=== PATIENT | female | born 1935 | race Caucasian/White ===

== ENCOUNTER 2019-10-23 14:53 | Emergency (ER) | payer MEDICARE, SELFPAY ==
[2019-10-23 15:30] VITALS: BP 150/72; PULSE 80; RESP 16; TEMP 37.2; O2SAT 96; BMI 30.8
--- NOTE | 2019-10-23 15:43 | CTR_ITS ---
PROCEDURE INFORMATION: Exam: CT Head Without Contrast Exam date and time: 10/23/2019 4:16 PM Age: 84 years old Clinical indication: Injury or trauma; Initial encounter; Laceration; Without loss of consciousness; Without residual foreign body; Patient HX: Fall while stepping of curb, lac to forehead w swelling and bruising; Additional info: Fall with head injury TECHNIQUE: Imaging protocol: Computed tomography of the head without contrast. Radiation optimization: All CT scans at this facility use at least one of these dose optimization techniques: automated exposure control; mA and/or kV adjustment per patient size (includes targeted exams where dose is matched to clinical indication); or iterative reconstruction. COMPARISON: No relevant prior studies available. RADIATION DOSE METRICS: Total DLP (mGy-cm): 750.76 FINDINGS: Brain: Mild diffuse cortical volume loss. Mild hypodensities in supratentorial periventricular and subcortical white matter. No intracranial hemorrhage. Ventricles: Normal. No ventriculomegaly. Bones/joints: Unremarkable. No acute fracture. Sinuses: Visualized sinuses are unremarkable. No fluid levels. Mastoid air cells: Visualized mastoid air cells are well aerated. Orbits: Prior cataract surgery. Soft tissues: Left frontal scalp laceration and contusion. CT/CT head wo con* [id number] IMPRESSION: 1. No fracture or intracranial hemorrhage. 2. Left frontal scalp injury. 3. Mild microangiopathy. Radiation Dose CTDIVOL = (mGy): DLP = 750.76 (mGy-cm)
--- NOTE | 2019-10-23 15:43 | CTR_ITS ---
PROCEDURE INFORMATION: Exam: CT Cervical Spine Without Contrast Exam date and time: 10/23/2019 4:16 PM Age: 84 years old Clinical indication: Injury or trauma; Initial encounter; Blunt trauma; Patient HX: Fall while stepping of curb, lac to forehead w swelling and bruising and neck pain; Additional info: Fall with head trauma and neck pain TECHNIQUE: Imaging protocol: Computed tomography images of the cervical spine without contrast. Radiation optimization: All CT scans at this facility use at least one of these dose optimization techniques: automated exposure control; mA and/or kV adjustment per patient size (includes targeted exams where dose is matched to clinical indication); or iterative reconstruction. COMPARISON: No relevant prior studies available. RADIATION DOSE METRICS: Total DLP (mGy-cm): 491.4 FINDINGS: Vertebrae: The vertebral body stature is maintained. The facets are intact with hypertrophic degenerative changes. C2-C3: No significant disc protrusion. No severe spinal canal stenosis. No significant neural foraminal narrowing. C3-C4: Disc space narrowing. Severe bilateral bony foraminal stenosis. C4-C5: Disc space narrowing with posterior endplate spurring. Severe bilateral bony foraminal stenosis. Moderate central canal stenosis. C5-C6: Disc space narrowing with endplate spurring. Severe bilateral bony foraminal stenosis. Mild central canal stenosis. C6-C7: Disc space narrowing with degenerative endplate changes. Severe bilateral bony foraminal stenosis. Moderate central canal stenosis. C7-T1: No significant disc protrusion. No severe spinal canal stenosis. No significant neural foraminal narrowing. Soft tissues: Unremarkable. Vasculature: Bilateral carotid bulb calcifications. Lungs: Lung apices are normal. CT/CT cervical spin wo con* [id number] IMPRESSION: 1. No fracture or acute finding. 2. Multilevel degenerative changes. Radiation Dose CTDIVOL = (mGy): DLP = 491.4 (mGy-cm)
--- NOTE | 2019-10-23 15:57 | ED_ITS ---
HPI - Wound/Laceration General: Chief Complaint: Wound/Laceration Stated Complaint: fall/head lac Time Seen by Provider: 10/23/19 15:44 History of Present Illness: HPI narrative: Patient is an 84-year-old female comes to the ED with laceration on forehead after having a fall. Patient is not currently on any blood thinners. Injury occurred just prior to arrival. Patient was walking in the parking lot at [facility] and stepped off the curb and fell face forward. Patient says her nose and forehead hit pavement. The loss of consciousness. She reports having a mild headache, neck pain and some soreness on the face but no other complaints. Denies any vision changes, numbness or tingling or weakness to face or extremities. Pt says she did not have any nosebleed after injury. Patient says she is unsure of last tetanus shot. Associated symptoms: Denies chills, fever(s), nausea or vomiting Review of Systems Const: Denies: fever(s), chills or fatigue Eyes: Denies: change in vision or eye discomfort ENMT: Denies: throat pain, odynophagia, nasal discharge or nasal congestion Card: Denies: chest pain, palpitations, edema, swelling of feet/ankles, dyspnea on exertion or orthopnea Resp: Denies: dyspnea, productive cough or non-productive cough GI: Denies: abdominal pain, nausea, vomiting, diarrhea, constipation or hematochezia : Denies: flank pain, dysuria or hematuria Musc: Reports: neck pain; Denies: back pain or extremity swelling Skin/Breast: Reports: new lesions (laceration above left eyebrow); Denies: rash Neuro: Reports: headache(s); Denies: numbness in extremities or weakness in extremities COUNT INCLUDES THE [facility] ED PFSH: Social History Smoking and tobacco status: never smoked Alcohol intake: former Substance/Drug Use: never Physical Exam Const: COMMON NORMALS: no acute distress, patient oriented x3 and alert GENERAL APPEARANCE: cooperative and comfortable HENMT: COMMON NORMALS: normocephalic HEAD & SCALP: normocephalic and hematoma left frontal Head hematoma size: 2 cm; no Arana's sign and no raccoon eyes FACE & SINUS: abrasion bilaterally upper lip and laceration left above eyebrow linear, superficial, with motor nerve function intact and with sensation intact; not actively bleeding, no pulsatile bleeding and not contaminated Facial laceration size: 2 cm NOSE: Abnormal external nose present nasal abrasion MOUTH: Normal oral and palatal mucosa present and lip normal TEETH & GINGIVA: Yes dentures THROAT: posterior oropharynx normal and uvula midline OTHER: No visible bleeding inside the mouth. Eye: COMMON NORMALS: Equal, round and reactive pupils present, EOMs intact bilaterally and normal visual walter by confrontation PUPIL: Yes Equal, round and reactive pupils present Neck/C-Spine: COMMON NORMALS: supple GENERAL: Yes normal visual inspection Resp: COMMON NORMALS: normal respiratory effort, No retractions, No use of accessory muscles and clear to auscultation bilaterally AUSCULTATION: clear to auscultation bilaterally Cardio: COMMON NORMALS: regular rate, regular rhythm, S1 normal heart sound present, S2 normal heart sound present, No gallops present (Cardio), No clicks present (Cardio), No murmurs present (Cardio) and Peripheral pulses 2+ throughout RATE: regular rate RHYTHM: regular rhythm HEART SOUNDS: S1 normal heart sound present and S2 normal heart sound present PERIPHERAL PULSES: Peripheral pulses 2+ throughout GI: COMMON NORMALS: Normal to inspection, nondistended, normoactive bowel sounds present, Soft to palpation, non-tender and no masses PALPATION: Yes Soft to palpation : COMMON NORMALS: Yes no CVA tenderness BLADDER/KIDNEY EXAM: Yes no CVA tenderness Back/Pelvis: COMMON NORMALS: no CVA tenderness Extremity: NARRATIVE EXTREMITY EXAM: Patient has some ecchymosis seen on the palmar side of both hands bilaterally. She has full range of motion and no pain or tenderness upon palpation. Radial pulse 2+ bilaterally. No visible deformit y seen. GENERAL: Yes normal exam except as noted Neuro: COMMON NORMALS: patient oriented x3, CN's II-XII intact bilaterally, moves all extremities, no focal motor deficits and no sensory deficits noted SENSORIUM/ORIENTATION: Yes alert SENSORY EXAM: Yes extremities (intact) MOTOR EXAM: 5/5 motor strength present throughout Skin: NARRATIVE SKIN EXAM: Laceration on forehead above left eyebrow. 2 cm linear laceration. Multiple superficial abrasions on external nose and upper lip. Procedures Laceration Laceration 1: Site: face (above left eyebrow) Side (If applicable): left Size (cm): 2 Description: linear and clean Depth: simple, single layer Local Anesthetic: lidocaine 1% and with epi Amount of anesthesia used (mL): 10 Pre-repair: irrigated extensively (With normal saline and skin cleaned with alcohol swab.) Skin layer closed with: nylon Size (cm): 5-0 Number of sutures: 6 Technique: simple, interrupted Course Vital Signs: Vital signs: Vital Signs Temperature 99.0 F 10/23/19 15:30 Pulse Rate 80 10/23/19 15:30 Respiratory Rate 16 10/23/19 15:30 Blood Pressure 150/72 10/23/19 15:30 Pulse Oximetry 96 10/23/19 15:30 MDM - Wound/Laceration MDM Narrative: Medical decision making narrative: Patient is an 84-year-old female comes to the ED with a laceration on forehead above left eyebrow after having a fall. Patient fell face first at [facility] parking lot. Patient is not currently on any blood thinners. Denies any loss of consciousness. Neuro exam was completely normal. No neurological deficits seen. 2 cm laceration above left eyebrow. Approximately 2 cm hematoma on left frontal part of scalp. CT of head no acute intracranial findings. CT of face showed no acute fractures. CT of cervical spine showed no acute fractures or findings. Laceration was irrigated extensively with normal saline and skin around laceration was cleaned with alcohol swab. Local lidocaine 1% with epi was used. Patient's laceration was closed with 6 5-0 sutures. Patient received updated tetanus today while here in the ED. patient was discharged and told to follow-up with primary care physician in 5 days to get sutures evaluated and removed. Return to ED precautions given. Patient understood and agreed with plan. Imaging Data^: CT Head: Attestation: I personally reviewed and interpreted this imaging study as follows: Radiologist's impression: [address] [address] [address] Scan Report Signed Patient: Claudia De Jesus Unit #: [id number] : 1935 Age/Sex: 84 / F ADM Date: 10/23/19 Loc: ER Room/Bed: Attending Dr: Ordering Provider/Ordering MD: Jairo Hoskins Date of Service: 10/23/19 Procedure(s): CT head wo con* [id number] Accession Number(s): [id number] Report Number: [id number] PROCEDURE INFORMATION: Exam: CT Head Without Contrast Exam date and time: 10/23/2019 4:16 PM Age: 84 years old Clinical indication: Injury or trauma; Initial encounter; Laceration; Without loss of consciousness; Without residual foreign body; Patient HX: Fall while stepping of curb, lac to forehead w swelling and bruising; Additional info: Fall with head injury TECHNIQUE: Imaging protocol: Computed tomography of the head without contrast. Radiation optimization: All CT scans at this facility use at least one of these dose optimization techniques: automated exposure control; mA and/or kV adjustment per patient size (includes targeted exams where dose is matched to clinical indication); or iterative reconstruction. COMPARISON: No relevant prior studies available. RADIATION DOSE METRICS: Total DLP (mGy-cm): 750.76 FINDINGS: Brain: Mild diffuse cortical volume loss. Mild hypodensities in supratentorial periventricular and subcortical white matter. No intracranial hemorrhage. Ventricles: Normal. No ventriculomegaly. Bones/joints: Unremarkable. No acute fracture. Sinuses: Visualized sinuses are unremarkable. No fluid levels. Mastoid air cells: Visualized mastoid air cells are well aerated. Orbits: Prior cataract surgery. Soft tissues: Left frontal scalp laceration and contusion. CT/CT head wo con* [id number] IMPRESSION: 1. No fracture or intracranial hemorrhage. 2. Left frontal scalp injury. 3. Mild microangiopathy. Radiation Dose CTDIVOL = (mGy): DLP = 750.76 (mGy-cm) Dictated By: Jesus Dia Signed By: Jesus Dia Signed Date/Time: 10/23/191726 DD/ [address]: Attestation: I personally reviewed and interpreted this imaging study as follows: Radiologist's impression: [address] [address] [address] Scan Report Signed Patient: Claudia De Jesus Unit #: [id number] : 1935 Age/Sex: 84 / F ADM Date: 10/23/19 Loc: ER Room/Bed: Attending Dr: Ordering Provider/Ordering MD: Jairo Hoskins Date of Service: 10/23/19 Procedure(s): CT cervical spin wo con* [id number] Accession Number(s): [id number] Report Number: [id number] PROCEDURE INFORMATION: Exam: CT Cervical Spine Without Contrast Exam date and time: 10/23/2019 4:16 PM Age: 84 years old Clinical indication: Injury or trauma; Initial encounter; Blunt trauma; Patient HX: Fall while stepping of curb, lac to forehead w swelling and bruising and neck pain; Additional info: Fall with head trauma and neck pain TECHNIQUE: Imaging protocol: Computed tomography images of the cervical spine without contrast. Radiation optimization: All CT scans at this facility use at least one of these dose optimization techniques: automated exposure control; mA and/or kV adjustment per patient size (includes targeted exams where dose is matched to clinical indication); or iterative reconstruction. COMPARISON: No relevant prior studies available. RADIATION DOSE METRICS: Total DLP (mGy-cm): 491.4 FINDINGS: Vertebrae: The vertebral body stature is maintained. The facets are intact with hypertrophic degenerative changes. C2-C3: No significant disc protrusion. No severe spinal canal stenosis. No significant neural foraminal narrowing. C3-C4: Disc space narrowing. Severe bilateral bony foraminal stenosis. C4-C5: Disc space narrowing with posterior endplate spurring. Severe bilateral bony foraminal stenosis. Moderate central canal stenosis. C5-C6: Disc space narrowing with endplate spurring. Severe bilateral bony foraminal stenosis. Mild central canal stenosis. C6-C7: Disc space narrowing with degenerative endplate changes. Severe bilateral bony foraminal stenosis. Moderate central canal stenosis. C7-T1: No significant disc protrusion. No severe spinal canal stenosis. No significant neural foraminal narrowing. Soft tissues: Unremarkable. Vasculature: Bilateral carotid bulb calcifications. Lungs: Lung apices are normal. CT/CT cervical spin wo con* [id number] IMPRESSION: 1. No fracture or acute finding. 2. Multilevel degenerative changes. Radiation Dose CTDIVOL = (mGy): DLP = 491.4 (mGy-cm) Dictated By: Jesus Dia Signed By: Jesus Dia Signed Date/Time: 10/23/191737 DD/ [address] [facility] [address] [place] [address] CT Scan Report Signed Patient: Claudia De Jesus Unit #: [id number] : 1935 Age/Sex: 84 / F ADM Date: Loc: ER Room/Bed: Attending Dr: Ordering Provider/Ordering MD: Jairo Hoskins Date of Service: 10/23/19 Procedure(s): CT facial bones wo con* [id number] Accession Number(s): [id number] Report Number: [id number] PROCEDURE INFORMATION: Exam: CT Maxillofacial Without Contrast Exam date and time: 10/23/2019 4:16 PM Age: 84 years old Clinical indication: Injury or trauma; Initial encounter; Laceration; Without residual foreign body; Patient HX: Fall while stepping of curb, lac to forehead w swelling and bruising, lac to nose; Additional info: Fall with head injury TECHNIQUE: Imaging protocol: Computed tomography images of the face without contrast. Radiation optimization: All CT scans at this facility use at least one of these dose optimization techniques: automated exposure control; mA and/or kV adjustment per patient size (includes targeted exams where dose is matched to clinical indication); or iterative reconstruction. COMPARISON: No relevant prior studies available. RADIATION DOSE METRICS: Total DLP (mGy-cm): 752.81 FINDINGS: Orbits: Prior cataract surgery. Bones/joints: The bones are intact and in normal alignment. Degenerative cervical spine. Sinuses: Normal. No air-fluid levels. Soft tissues: Left frontal scalp laceration and contusion. Dental: Patient is edentulous. CT/CT facial bones wo con* [id number] IMPRESSION: 1. Left frontal scalp injury. 2. No fracture identified. Radiation Dose CTDIVOL = (mGy): DLP = 752.81 (mGy-cm) Dictated By: Jesus Dia Signed By: Jesus Dia Signed Date/Time: 10/23/191732 DD/ 31 Discharge Plan Discharge Patient Disposition: Home Clinical Impression: Abrasion, Hematoma, Fall (on)(from) sidewalk curb, initial encounter Facial laceration Qualifiers: Encounter type: initial encounter Qualified Code(s): S01.81XA - Laceration without foreign body of other part of head, initial encounter Cervical muscle strain Qualifiers: Encounter type: initial encounter Qualified Code(s): S16.1XXA - Strain of muscle, fascia and tendon at neck level, initial encounter Condition: Stable Discharge Orders: Discharge Order (Routine); Ordered 10/23/19 Ordered By: Jairo Hoskins Discharge Diet: Regular Discharge Activity: Limit activity as instructed Patient Instructions: Laceration (ED) Activity Restrictions/Additional Instructions: Keep laceration site clean and dry for the next 48 hours. Then after that you can clean and re-bandage daily. Watch for signs of infection such as redness, warmth, increased tenderness and puslike drainage. If you see the signs of infection return to the ED, urgent care or PCP for reevaluation. call your PCP to schedule a follow-up appointment for reevaluation and suture removal in about 5 days. Apply cold pack on face to help with swelling. Take ibuprofen or Tylenol for pain. Continue taking all home meds. Follow discharge plans as discussed. You can return to the ED if symptoms worsen. Coding Level of Care Code ED Communications Equipment Operator for Sarath Fwsilvia Exam Comprehensive
[2019-10-23] MEDS: tetanus-dipt-pertussis 0.5 mL SDV IM (17:44)
[2019-10-23 18:00] VITALS: BP 175/72; PULSE 104; RESP 17; O2SAT 96
== END 2019-10-23 18:02 | disposition home or self-care (01) ==
PROVIDERS: Emergency Provider Physician Assistant
DX: S01.81XA Laceration without foreign body of other part of head, initial encounter (principal); S16.1XXA Strain of muscle, fascia and tendon at neck level, initial encounter; S00.31XA Abrasion of nose, initial encounter; S00.511A Abrasion of lip, initial encounter; W10.1XXA Fall (on)(from) sidewalk curb, initial encounter; Z23 Encounter for immunization
CPT/HCPCS: 12011; 12345; 70450; 70486; 72125; 90471; 90715; 99281; 99283